=== PATIENT | female | born 1960 | race Caucasian/White ===

== ENCOUNTER → 2024-08-20 10:55 | Outpatient (CLI) | payer MEDICARE, SELFPAY ==
--- NOTE | 2024-08-20 10:59 | DI.CT.S_ITS ---
PROCEDURE: CT CHEST HIGH RESOLUTION INDICATIONS: shortness of breath TECHNIQUE: Noncontrast 1.0 and 5.0 mm thick contiguous axial sections from the pulmonary apex to the posterior costophrenic angles, with 7 mm thick coronal and sagittal MIP reformats. 1 mm thick dynamic expiratory images acquired through the upper, mid, and lower lungs. 1.0 mm thick axial sections acquired from the dylan to the posterior costophrenic angles in the prone end-inspiration position. For radiation dose reduction, the following was used: automated exposure control, adjustment of mA and/or kV according to patient size. COMPARISON: None. FINDINGS: Image quality: Diagnostic. Lungs and Pleura: Central and peripheral airways are normal morphology without bronchial wall thickening or bronchiectasis. Mild mid and lower lung interstitial stranding or scarring, mainly horizontal linear opacities. No dense alveolar consolidations. No persistent ground-glass opacities, nodules, or masses. No reticulation, honeycombing, or significant parenchymal cystic change. No pleural effusion or pleural calcification. Axillae choudhary images demonstrate ngnn-wz-[id number] mosaic attenuation throughout the lung haro suggesting scattered air trapping. Narrowing of lower lobe bronchi during exhalation. Lower Neck: No enlarged lymph nodes. Thyroid: Normal CT appearance. Axillae: No enlarged lymph nodes. Chest Wall: No suspicious chest wall mass. Subdermal sebaceous cyst over the left scapula. Bones: No suspicious bone lesions. Smooth flowing osteophytes throughout the thoracic spine with maintenance of disc spaces. Heart: The heart is mildly enlarged. No pericardial effusion. Minor aortic valvular calcification. Thoracic Vessels: The aorta and pulmonary arteries demonstrate normal size. Mediastinum and Ronit: No enlarged lymph nodes. Esophagus: No wall thickening. No hiatal hernia. Upper Abdomen: Cholecystectomy. Visible portions of upper abdominal organs are otherwise normal. IMPRESSION: Ktvb-[id number] air trapping throughout the lungs. With inhalation, airways demonstrate no significant bronchial wall thickening. There may be underlying hypoinflation. No other significant pulmonary parenchymal disease. Dictated by: Pat Calderon M.D. on 08/20/2024 at 22:50 Approved by: Pat Calderon M.D. on 08/20/2024 at 23:00
== END ==
PROVIDERS: Referring Provider Internal Medicine; Visit Provider Internal Medicine
DX: R06.02 Shortness of breath (principal); I51.7 Cardiomegaly; Z90.49 Acquired absence of other specified parts of digestive tract
CPT/HCPCS: 71250

== ENCOUNTER → 2024-09-21 09:58 | Outpatient (CLI) | payer MEDICARE, SELFPAY | PROVIDERS: Referring Provider Internal Medicine; Visit Provider Internal Medicine | DX: R06.02 Shortness of breath (principal); R05.9 Cough, unspecified; Z77.22 Contact with and (suspected) exposure to environmental tobacco smoke (acute) (chronic); R94.2 Abnormal results of pulmonary function studies | CPT/HCPCS: 94060; 94726; 94729 ==

== ENCOUNTER → 2024-12-01 08:19 | Outpatient (CLI) | payer MEDICARE, SELFPAY ==
--- NOTE | 2024-12-01 12:53 | ST.SWALLOW ---
Visit Care Team Role Provider Type JAYSHREE Grissom Attending Provider Non-Staff Primary Care Provider Referring Provider Specialty: Nursing Address: [facility] [address], [place], [address] Email: Modified Barium Swallow Study BEEF CATTLE GRAZIER Modified Barium Swallow Study Start: 12/01/24 09:38 Freq: Status: Active Protocol: Document 12/01/24 09:40 LNK (Rec: 12/01/24 09:45 LNK [id number]) Modified Barium Swallow Study Total Time Visit Start Time 09:00 Visit Stop Time 09:30 Total Visit Minutes 30 Referral Reason for Referral dysphagia Setting Setting Outpatient Care Patient Information Identification Type Name,Date of Patient History Pt was seen for a Modified Barium Swallow Study secondary to c/o difficulty swallowing. Pt described her swallow as it won't go down...I have to push it down (e.g. pt described an effortful swallow ). Pt noted she is unable to swallow pills, often needing a carrier such as applesauce to help swallow a pill. She also reported that she will often gag when she experiences PND. Pt stated that foods get stuck in her throat (pointing to sternal notch). She said she has difficulty swallowing everything except liquids, which were reported to be swallowed without difficulty. Pt stated she includes GERD and she is being tested for sleep apnea. She reported that during a past EGD procedure, she stopped breathing and the procedure was stopped. Subjective Observations Pt was seated in the fluoroscopy chair with directions and procedures described for her. She indicated she understood and agreed to proceed. Patient Positioning Position View Lat-A/P Imaging Lateral View Textures Administered Trials Presented Thin Liquid via Spoon (IDDSI 0 ),Thin Liquid via Cup (IDDSI 0 ),Extremely Thick Liquid via Cup (IDDSI 4),Regular (IDDSI 7 ) Barium Tablet Yes The IDDSI Framework Protocol: IDDSI.1 Oral Impairment Source: The Modified Barium Swallow Impairment Profile (MBSImP??) Lip Closure No labial escape Tongue Control During Bolus Hold Cohesive bolus between tongue to palatal seal Bolus Preparation/Mastication Slow prolonged chewing/mashing with complete re-collection Bolus Transport/Lingual Motion Repetitive/disorganized tongue motion Oral Residue Complete oral clearance, Residue collection on oral structures Location Tongue Initiation of Pharyngeal Swallow Bolus head in valleculae Additional Oral Impairment Observations *OME and DKS were observed to be WNL. *Dentition natural and in good hygiene. Missing molars bilaterally noted *Mastication observed to be slow with lingual with rotary chew pattern. *Adequate bolus formation. *Functionally, disorganized movements of pt' s tongue in a rocking motion was observed. AP transition was delayed, moving from anterior tongue posteriorly, returning to the anterior, etc., over 4-5 repetitions. This was observed across all trials. Pt was unable to move barium tablet AP and eventually spit out the tablet. A carrier was tried, with the same result. Pharyngeal Impairment Source: The Modified Barium Swallow Impairment Profile (MBSImP??) Soft Palate Elevation No bolus between soft palate & pharyngeal wall Laryngeal Elevation Part.sup.move.thyroid cart/ part.approx.arytenoids to epiglot.petiole Anterior Hyoid Excursion Partial anterior movement Epiglottic Movement Complete inversion Laryngeal Vestibular Closure Complete; no air/contrast in laryngeal vestibule Pharyngeal Stripping Wave Present - complete Pharyngoesophageal Segment Opening Complete distention & complete duration; no obstruction of flow Tongue Base Retraction No contrast between tongue base & posterior pharyngeal wall Pharyngeal Residue Trace residue within/on pharyngeal structures Location Valleculae Additional Pharyngeal Impairment Pharyngeal swallow phase Observations observed to be WNL A/P View Textures Administered Trials Presented Thin Liquid via Cup (IDDSI 0) The IDDSI Framework Protocol: IDDSI.1 A/P View Observations Pharyngeal Contraction Complete Esophageal Clearance Upright Position Complete clearance; esophageal coating Vocal Fold Function Good Esophageal Function WFL Additional A-P Observations Thin liquid and calibrated barium tablet evaluated in AP position. Pt was unable to swallow tablet despite several attempts with water, a piece of cookie and pudding thick barium. Tablet never left the oral cavity, Thin barium was observed to clear the esophagus to the stomach in a timely manner Esophageal phase of swallow observed to be WNL Clinical Impressions Dysphagia Type Oral Findings Pt presented with oral phase dysphagia, specifically decreased lingual control and AP transition of the bolus. Lingual rocking and reduced coordination was noted as the pt needed 4-5 attempts to move the bolus to the back of the tongue. She was unable to move the barium tablet AP and eventually spit the tablet out . Once the bolus reached the valeculla, the pharyngeal and esophageal swallow phases were WNL. Unsure if the lingual observations are suggestive of a neurological etiology. Pt stated that this difficulty has been a recent change to her swallowing. Further evaluation is recommended. Research has documented lingual discoordination following stroke: (Discoordination and Dysphagia Following Acute Stroke: Analysis of Lesion Localization; DARREL Pimentel et. al Dysphagia, spring) Rehabilitation Potential Good Patient Appropriate for Therapy Yes Recommendations Diet Comments No diet change recommended Aspiration Precautions Recommended Precautions Upright at 90 Degrees Treatment Plan Therapy Recommendations Outpatient Speech Therapy,Oral Motor Exercises Recommended Referrals Neurology
== END ==
LOC: RAD 08:19
PROVIDERS: PCP Nurse Practitioner Family; Referring Provider Nurse Practitioner Family; Visit Provider Nurse Practitioner Family
DX: R13.10 Dysphagia, unspecified (principal)
CPT/HCPCS: 74230; 92611